=== PATIENT | male | born 2000 | race Two or more races ===

== ENCOUNTER 2024-08-06 11:46 | Emergency (ER) | payer MEDICAID, SELFPAY ==
[2024-08-06 11:56] VITALS: BP 111/75; PULSE 78; RESP 18; TEMP 36.6; O2SAT 100; BMI 20.3
--- NOTE | 2024-08-06 11:58 | PD.EDALCOH ---
ED Alcohol RME/HPI General Chief Complaint: Nausea/Vomiting/Diarrhea Stated Complaint: VOMITING, H/A, TREMORS, ETOH LAST NIGHT Time Seen by Provider: 08/06/24 11:57 Source: patient Arrival date/time: 08/06/24 11:46 23-year-old male with no known medical history presents to the emergency room with a chief complaint of a headache, vomiting x 1 day. Patient states he drank a lot of alcohol last night. Mode of arrival: ambulatory Limitations: no limitations Related Data Previous Rx's ?Medication ?Instructions ?Recorded ondansetron 4 mg disintegrating 4 mg PO Q8H PRN nausea and 08/06/24 tablet vomiting #14 tabs Allergies Allergy/AdvReac Type Severity Reaction Status Date / Time No Known Allergies Allergy Verified 08/06/24 11:50 Review of Systems Review of Systems Systems Reviewed: All systems reviewed, normal except as documented Constitutional Constitutional: Reports system reviewed and no additional complaints, except as documented, Denies fatigue, Denies fever(s), Denies headache(s) and Denies weakness Eyes Eyes: Reports system reviewed and no additional complaints, except as documented, Denies blurry vision and Denies change in vision ENT Ears, Nose, Mouth, and Throat: Reports system reviewed and no additional complaints, except as documented, Denies otalgia, Denies headache(s), Denies nasal congestion, Denies throat swelling and Denies vertigo Cardiovascular Cardiovascular: Reports system reviewed and no additional complaints, except as documented, Denies chest pain, Denies dyspnea and Denies dyspnea on exertion Respiratory Respiratory: Reports system reviewed and no additional complaints, except as documented, Denies chest congestion, Denies cough, Denies dyspnea, Denies dyspnea on exertion and Denies wheezing Gastrointestinal Gastrointestinal: Reports system reviewed and no additional complaints, except as documented, Denies abdominal pain, Denies cramping, Denies nausea and Denies vomiting Genitourinary Genitourinary: Reports system reviewed and no additional complaints, except as documented, Denies dysuria and Denies hematuria Musculoskeletal Musculoskeletal: Reports system reviewed and no additional complaints, except as documented and Denies back pain Integumentary/Breasts Skin/Breast: Reports system reviewed and no additional complaints, except as documented and Denies wounds Neurologic Neurologic: Reports system reviewed and no additional complaints, except as documented, Denies confusion, Denies headache(s), Denies lack of coordination, Denies vertigo and Denies weakness Psychiatric Psychiatric: Reports system reviewed and no additional complaints, except as documented, Denies anxiety, Denies confusion, Denies depression, Denies paranoia, Denies suicidal ideation and Denies tactile hallucinations Endocrine Endocrine: Reports system reviewed and no additional complaints, except as documented and Denies fatigue Hematologic/Lymphatic Hematologic/Lymphatic: Reports system reviewed and no additional complaints, except as documented and Denies lymphadenopathy Allergic/Immunologic Allergic/Immunologic: Reports system reviewed and no additional complaints, except as documented, Denies throat swelling, Denies urticaria and Denies wheezing Past Medical History Social History SMOKING STATUS: Light (< 1 pack/day) ED Exam General Limitations: Present no limitations General appearance: Present alert, in no apparent distress and appears intoxicated Head Head exam: Present atraumatic, normocephalic and normal inspection Eye Eye exam: Present normal appearance, PERRL and EOMI ENT ENT exam: Present normal exam, normal oropharynx and mucous membranes moist Neck Neck exam: Present normal inspection, full ROM and trachea midline Chest Chest inspection: Present normal inspection and symmetric chest wall rise Respiratory Respiratory exam: Present normal lung sounds bilaterally Cardiovascular Cardiovascular exam: Present regular rate, normal rhythm and normal heart sounds Abdominal Exam Abdominal exam: Present soft and normal bowel sounds Extremities Exam Extremities exam: Present normal inspection and full ROM Back Exam Back exam: Present normal inspection and full ROM Neurological Exam Neurological exam: Present alert, oriented X3, CN II-XII intact, normal gait and reflexes normal Expanded Neurological Exam Patient oriented to: Present person, place and time Speech: Present fluid speech Cranial nerves: Normal: EOM function (II, III, IV, ), facial sensation (V) and facial palsy (VII) Cerebellar function: Present normal gait Motor strength - LUE: 5/5 Motor strength - RUE: 5/5 Motor strength - LLE: 5/5 Motor strength - RLE: 5/5 Coma scale eye opening: spontaneous Coma scale motor response: obeys commands Coma scale verbal response: oriented Coma scale total: 15 Psychiatric Psychiatric exam: Present normal affect and normal mood Skin Skin exam: Present warm, dry, intact and normal color Course Quality Measures none Orders Category Date Time Status Alcohol, Blood Medical Stat Lab 08/06/24 12:01 Completed CBC Stat Lab 08/06/24 12:01 Completed CMP [Comprehensive Metabolic Panel] Stat Lab 08/06/24 12:01 Completed Vital Signs Vital signs: Vital Signs Temperature 97.8 F 08/06/24 11:56 Pulse Rate 78 08/06/24 11:56 Respiratory Rate 18 08/06/24 11:56 Blood Pressure 111/75 08/06/24 11:56 Pulse Oximetry (%) 100 08/06/24 11:56 Oxygen Delivery Method Room Air 08/06/24 11:56 Discharge Plan Plan Patient Disposition: HOME (Self Care) Disposition Comment: Stable Prescriptions/Referrals Prescriptions/Med Rec: New ondansetron 4 mg tablet,disintegrating 4 mg PO Q8H PRN (Reason: nausea and vomiting) Qty: 14 0RF Referrals: Flako Okeefe PA-C [Primary Care Provider] - In 1 week Problem List Clinical Impression: Alcohol intoxication Patient/Caregiver Discharge Instructions Education Materials: ED Alcohol Intoxication Additional Instructions: Please follow-up with your primary care provider in the next 24 to 48 hours. Please stop drinking alcohol excessively. For any evidence of worsening signs or symptoms return to the emergency room immediately Print Language: French Stand Alone Forms: [employer] Award Info., Patient Portal Info Letter PA/CAESAR Supervising Physician PA/CAESAR Supervising Physician: Dr. Mitchell Alcohol MDM Narrative MDM Narrative: 23-year-old male with no known medical history presents to the emergency room with a chief complaint of a headache, vomiting x 1 day. Patient states he drank a lot of alcohol last night. Patient is hemodynamically stable and in no apparent distress Patient has a normal neurological examination pupils are PERRLA EOMs are intact patient is a GCS of 15 he is alert and oriented x 3. Patient states he drank a lot of alcohol last night and believes he has alcohol poisoning. Patient states he is very hung over and has been vomiting and has a headache. Patient was observed for 3 hours with significant improvement and states he is ready to go home. CBC CMP were within normal limits patient was discharged and educated to follow-up with primary care provider and return to the emergency room for any evidence of worsening signs or symptom Patient data External records reviewed:: [facility] previous records Clinical information provided by:: patient Social determinants that could affect healthcare access:: none Patient has the following chronic illnesses:: No chronic illness How is presenting disease/condition affected by chronic disease/condition?: no chronic disease Evaluation data The following diagnostics were reviewed and interpreted by me:: lab results and radiology exam(s) Lab and/or radiology exams considered but not ordered:: Labs and radiology exams considered and ordered Interpretation Summary: N/A Medications / Prescriptions Medications or Prescriptions considered but not ordered:: No medication given Medication administrations:: No medication given Consultations Consultation(s) initiated? (list below): No Diagnosis Differential diagnosis alcohol: hypomagnesemia, alcohol intoxication and alcohol withdrawal syndrome Most likely diagnosis given after review of the tests above:: Alcohol intoxication Admission Indicated Admission indicated?: not indicated Admission Request Was there a request for admission?: No Disposition Plan Disposition Plan: Discharge Discharge Attestation Discharge Attestation: The patient and all family members were given an opportunity to ask questions and understood the discharge instructions. Discharge instructions specifically effects, indications for sooner follow up or return to the emergency department, and the expected course of current diagnosis. Patient condition: Stable
[2024-08-06 12:15] LABS: Basophils # (Auto) 0.1 Thou/mm3 (0.0-0.2); Basophils % (Auto) 0 % (0-2.5); Eosinophils % (Auto) 0 % (0-10); Hematocrit 45.9 % (41.0-53.0); Hemoglobin 15.5 g/dL (13.5-16.0); Immature Granulocytes % (Auto) 1 % (0-0); Immature Granulocytes Auto 0.11 Thou/mm3 (0.00-0.00); Lymphocytes # (Auto) 1.2 Thou/mm3 (1.0-4.8); Lymphocytes % (Auto) 6 % (10-50); Mean Corpuscular HGB Conc 33.8 g/dl (31.0-37.0); Mean Corpuscular Hemoglobin 29.6 pg (25.0-35.0); Mean Corpuscular Volume 88 fL (80-100); Monocytes # (Auto) 0.8 Thou/mm3 (0.0-0.8); Monocytes % (Auto) 4 % (0-12); Neutrophils # (Auto) 18.3 Thou/mm3 (1.8-7.7); Neutrophils % (Auto) 89 % (37-80); Nucleated Red Blood Cell % 0 /100 WBC (0); Platelet Count 208 Thou/mm3 (140-440); RDW Standard Deviation 41.7 fL (35.1-43.9); Red Blood Count 5.24 Miln/mm3 (4.50-5.90); White Blood Count 20.5 Thou/mm3 (3.8-10.6)
[2024-08-06 12:32] LABS: Alanine Aminotransferase 20 U/L (10-49); Albumin, Serum 5.3 gm/dL (3.5-5.0); Albumin/Globulin Ratio 1.8 (1.2-2.2); Alcohol, Blood Medical < 10.0 mg/dL (0-10.0); Alkaline Phosphatase 43 U/L (46-116); Anion Gap 21 (7-16); Aspartate Amino Transferase 29 U/L (0-34); BUN/Creatinine Ratio 17 Ratio (12-20); Bilirubin,Total 0.5 mg/dL (0.3-1.2); Blood Urea Nitrogen 17 mg/dL (9-23); Calcium 10.5 mg/dL (8.3-10.6); Calcium (Corrected) 10.5 mg/dL (8.5-10.1); Chloride 103 mMol/L (98-107); Estimated Creatinine Clearance 96.6 mL/min (>60); Glucose 96 mg/dL (74-106); Osmolality,Calculated 280 (275-295); Potassium 4.5 mMol/L (3.4-5.1); Sodium 140 mMol/L (136-145); Total Protein 8.3 gm/dL (5.7-8.2); eGFR > 60 See Note
== END 2024-08-06 15:16 | disposition home or self-care (01) ==
PROVIDERS: Nurse Practitioner Family; Emergency Provider Emergency Medicine; PCP Physician Assistant
DX: F10.129 Alcohol abuse with intoxication, unspecified (principal)
CPT/HCPCS: 36415; 80053; 80320; 85025; 99283; G0480

== ENCOUNTER → 2024-12-07 | Outpatient (CLI) | payer MEDICAID, SELFPAY ==
--- NOTE | 2024-12-07 11:39 | XR_ITS ---
Examination: Hand, right 3 views Technique: Hand AP, oblique, lateral 3 views Date and time of exam: December 07, 2024 1140 hours INDICATIONS: Right hand pain 6 years FINDINGS: No fracture or dislocation No erosive arthritis No opaque foreign bodies IMPRESSION: No fracture or dislocation. No opaque foreign bodies
--- NOTE | 2024-12-07 11:39 | XR_ITS ---
Examination: Wrist, right 3 views Technique: Wrist AP, oblique, lateral 3 views Date and time of exam: December 07, 2024 1140 hours INDICATIONS: Right wrist pain 6 years. FINDINGS: No fracture or dislocation Mild narrowing radiocarpal joint No erosive arthritis IMPRESSION: Mild narrowing radiocarpal joint
== END | disposition home or self-care (01) ==
LOC: CDIM 11:28
PROVIDERS: Referring Provider Nurse Practitioner Gerontology; Visit Provider Nurse Practitioner Gerontology
DX: M25.831 Other specified joint disorders, right wrist (principal); M79.641 Pain in right hand
CPT/HCPCS: 73110; 73130